=== PATIENT | male | born 1970 | race Two or more races ===

== ENCOUNTER 2018-10-18 14:49 | Emergency (ER) | payer MEDICAID ==
[~2018-10-18] VITALS: Ht 188 cm; Wt 142.9 kg
[2018-10-18 15:10] VITALS: BP 123/77
[2018-10-18] MEDS ORDERED: TETANUS-DIPTH-ACEL PERTUSSIS 0.5ML SYRG IM ONE ×2 (20:00→20:11)
== END 2018-10-18 20:17 | disposition home or self-care (01) ==
LOC: ER 14:49
DX: S01.511A Laceration without foreign body of lip, initial encounter (principal); W22.8XXA Striking against or struck by other objects, initial encounter; Y93.89 Activity, other specified; Y99.8 Other external cause status; Y92.89 Other specified places as the place of occurrence of the external cause
CPT/HCPCS: 90471; 90715